=== PATIENT | female | born 1995 | race Caucasian/White ===

== ENCOUNTER 2016-09-22 07:37 | Emergency (ER) | payer BC ==
[~2016-09-22] VITALS: Ht 157.5 cm; Wt 50.0 kg
[2016-09-22 07:39] VITALS: BP 118/99; PULSE 82; RESP 16; TEMP 98.9; O2SAT 99
[2016-09-22] MEDS ORDERED: SODIUM CHLOR 0.9% 1000 ML INJ 1,000 ML IV SCH (08:34)
--- NOTE | 2016-09-22 08:40 | PD ---
HPI Chief Complaint: GI Complaint Time Seen by Provider: 08:23 Travel History International Travel<30 days: No Contact w/Intl Traveler<30days: No Traveled to known affect area: No History of Present Illness HPI This is a 21-year-old female who has a history of anxiety disorder, reported renal transplant that was a perfect match and not on immunosuppressants, presents today with complaints of epigastric discomfort times one month. She reports nausea and decreased appetite and epigastric discomfort times one month. She denies any fevers, chills per she denies any diarrhea, vomiting. She does state that she drinks a lot of energy drinks. She also reports that she's tried to stop drinking them when the symptoms started. The patient has no history of peptic ulcer disease. She does admit to smoking marijuana but denies tobacco abuse. She denies any alcohol abuse. She is sexually active and denies any pelvic pain or vaginal discharge. She does state that she has an occasional kidney pain but could not quantitate that at the time of my evaluation. PFSH Past Medical History ?: Unknown LMP: 09/20 Social History Alcohol Use: No Tobacco Use: No Substance Use: Yes (" Smoke weed sometimes") Allergies-Medications (Allergen,Severity, Reaction): Coded Allergies: Penicillin (Verified Allergy, Unknown, 09/22/16) Sulfa (Verified Allergy, Unknown, 09/22/16) Reported Meds & Prescriptions Reported Meds & Active Scripts Active Zofran (Ondansetron HCl) 4 Mg Tab 4 Mg PO Q8HR PRN Zantac (Ranitidine HCl) 150 Mg Tab 150 Mg PO BID Review of Systems Except as stated in HPI: all other systems reviewed are Neg General / Constitutional: No: Fever HENT: No: Headaches, Vertigo, Lightheadedness Cardiovascular: No: Chest Pain or Discomfort, Palpitations Respiratory: No: Cough, Shortness of Breath Gastrointestinal: Positive: Nausea, Abdominal Pain (epigastric), Loss of Appetite, No: Vomiting, Diarrhea, Changes in Bowel Habits Genitourinary: Positive: Flank Pain (occasional intermittent), No: Frequency, Dysuria, Pelvic Pain Musculoskeletal: No: Myalgias, Weakness Neurologic: No: Weakness, Dizziness Psychiatric: No: Disorder of Thought Physical Exam Narrative GENERAL: Well-nourished, well-developed patient. SKIN: Focused skin assessment warm/dry. HEAD: Normocephalic/atraumatic. EYES: No scleral icterus. No injection or drainage. NECK: Supple, trachea midline. CARDIOVASCULAR: Regular rate and rhythm without murmurs, gallops, or rubs. RESPIRATORY: Breath sounds equal bilaterally. No accessory muscle use. GASTROINTESTINAL: Abdomen soft, nondistended. She has subjective discomfort in her epigastrium. There is no rebound or guarding elicited. MUSCULOSKELETAL: No cyanosis, or edema. NEUROLOGICAL: Awake and alert. Cranial nerves II through XII intact. Motor grossly within normal limits. Five out of 5 muscle strength in all muscle groups. Normal speech. Data Data Last Documented VS Vital Signs Date Time Temp Pulse Resp B/P Pulse Ox O2 Delivery O2 Flow Rate FiO2 09/22/16 10:40 73 16 112/70 97 Room Air 09/22/16 07:39 98.9 Orders Complete Blood Count With Diff (09/22/16 08:34) Comprehensive Metabolic Panel (09/22/16 08:34) Lactic Acid (09/22/16 08:34) Urinalysis - C+S If Indicated (09/22/16 08:34) Iv Access Insert/Monitor (09/22/16 08:34) Ecg Monitoring (09/22/16 08:34) Oximetry (09/22/16 08:34) Sodium Chlor 0.9% 1000 Ml Inj (Ns 1000 M (09/22/16 08:34) Sodium Chloride 0.9% Flush (Ns Flush) (09/22/16 08:45) Al-Mag Hy-Si 40-40-4 Mg/Ml Liq (Mag-Al P (09/22/16 08:45) Lidocaine 2% Viscous (Xylocaine 2% Visco (09/22/16 08:45) Ed Urine Pregnancytest Poc (09/22/16 08:34) Mandatory Outpatient Referral (09/22/16 11:01) Labs Laboratory Tests Test 09/22/16 09/22/16 08:30 08:40 Urine Color YELLOW Urine Turbidity HAZY Urine pH 6.0 Urine Specific [place] 1.014 Urine Protein TRACE mg/dL Urine Glucose (UA) NEG mg/dL Urine Ketones NEG mg/dL Urine Occult Blood NEG Urine Nitrite NEG Urine Bilirubin NEG Urine Urobilinogen LESS THAN 2.0 MG/DL Urine Leukocyte Esterase TRACE Urine RBC 1 /hpf Urine WBC 3 /hpf Urine Squamous Epithelial 2 /hpf Cells Urine Bacteria OCC /hpf Urine Mucus FEW /lpf Microscopic Urinalysis Comment CULT NOT INDICATED White Blood Count 5.6 TH/MM3 Red Blood Count 4.47 MIL/MM3 Hemoglobin 12.8 GM/DL Hematocrit 38.1 % Mean Corpuscular Volume 85.4 FL Mean Corpuscular Hemoglobin 28.7 PG Mean Corpuscular Hemoglobin 33.6 % Concent Red Cell Distribution Width 13.7 % Platelet Count 271 TH/MM3 Mean Platelet Volume 7.9 FL Neutrophils (%) (Auto) 59.4 % Lymphocytes (%) (Auto) 33.5 % Monocytes (%) (Auto) 5.6 % Eosinophils (%) (Auto) 1.0 % Basophils (%) (Auto) 0.5 % Neutrophils # (Auto) 3.4 TH/MM3 Lymphocytes # (Auto) 1.9 TH/MM3 Monocytes # (Auto) 0.3 TH/MM3 Eosinophils # (Auto) 0.1 TH/MM3 Basophils # (Auto) 0.0 TH/MM3 CBC Comment DIFF FINAL Differential Comment Sodium Level 140 MEQ/L Potassium Level 3.7 MEQ/L Chloride Level 106 MEQ/L Carbon Dioxide Level 26.0 MEQ/L Anion Gap 8 MEQ/L Blood Urea Nitrogen 7 MG/DL Creatinine 0.78 MG/DL Estimat Glomerular Filtration 92 ML/MIN Rate Random Glucose 93 MG/DL Lactic Acid Level 0.6 mmol/L Calcium Level 8.7 MG/DL Total Bilirubin 0.7 MG/DL Aspartate Amino Transf 13 U/L (AST/SGOT) Alanine Aminotransferase 23 U/L (ALT/SGPT) Alkaline Phosphatase 53 U/L Total Protein 7.3 GM/DL Albumin 4.0 GM/DL [facility] Medical Decision Making Medical Screen Exam Complete: Yes Emergency Medical Condition: Yes Differential Diagnosis Gastritis versus peptic ulcer disease versus pancreatitis versus cholecystitis Narrative Course 21-year-old female presents with one-month history of epigastric discomfort. Patient states she feels nauseous and dizzy at times. The patient's lab tests are all within normal limits. She's been given a GI cocktail which helped her symptoms. She has a non-surgical belly on exam. I will start her on Zantac 150 mg twice daily. I put in a mandatory consult for a GI follow up. She is instructed to have a bland diet. She is also instructed to avoid any fatty foods. She'll also be given a prescription for nausea medicine and told to take as needed. Diagnosis Primary Impression: Epigastric abdominal pain Additional Instructions: [place] diet. You will receive a call in the next few days from a nurse for a follow up appointment with a reeling operator. Med/Other Pt SpecificInfo: Prescription(s) given Scripts Ondansetron (Zofran)4 Mg Tab4 Mg PO Q8HR PRN (NAUSEA OR VOMITING) #20 TAB Ref 0 Prov:Kurtis Hollingsworth MD 09/22/16 Ranitidine (Zantac)150 Mg [id number] Mg PO BID #60 TAB Ref 0 Prov:Kurtis Hollingsworth MD 09/22/16 Disposition: 01 DISCHARGE HOME Condition: Stable Kurtis Hollingsworth MD September 22, 2016 08:40 Kurtis Hollingsworth MD September 22, 2016 08:40
[2016-09-22] MEDS ORDERED: SODIUM CHLORIDE 0.9% FLUSH 10 ML FLUSH IV FLUSH PRN (08:45)
[2016-09-22] MEDS ORDERED: ALUMINUM/MAGNESIUM/SIMETH 30 ML CUP PO ONE (08:45)
[2016-09-22] MEDS ORDERED: LIDOCAINE VISCOUS 2% SOLN 15 ML UDC PO ONE (08:45)
[2016-09-22 08:53] VITALS: BP 155/67; PULSE 64; RESP 18; O2SAT 100
[2016-09-22 08:57] LABS: AUTOMATED NEUTROPHIL # 3.4 TH/MM3 (1.8-7.7); BASOPHIL % 0.5 % (0.0-2.0); EOSINOPHIL # 0.1 TH/MM3 (0-0.4); HEMATOCRIT 38.1 % (35.0-46.0); HEMO FLAGS DIFF FINAL; LYMPH % 33.5 % (9.0-44.0); LYMPHOCYTE # 1.9 TH/MM3 (1.0-4.8); MEAN CELL VOLUME 85.4 FL (80.0-100.0); MEAN CORPUSCULAR HEMOGLOBIN 28.7 PG (27.0-34.0); MEAN CORPUSCULAR HGB CONC 33.6 % (32.0-36.0); MONO % 5.6 % (0.0-8.0); NEUT % 59.4 % (16.0-70.0); PLATELET COUNT 271 TH/MM3 (150-450); RED BLOOD COUNT 4.47 MIL/MM3 (4.00-5.30); RED CELL DISTRIBUTION WIDTH 13.7 % (11.6-17.2); WHITE BLOOD COUNT 5.6 TH/MM3 (4.0-11.0)
[2016-09-22 09:09] LABS: ANION GAP 8 MEQ/L (5-15); AST (GOT) 13 U/L (15-37); BLOOD UREA NITROGEN 7 MG/DL (7-18); CHLORIDE 106 MEQ/L (98-107); GLOMERULAR FILTRATION RATE 92 ML/MIN (>89); POTASSIUM 3.7 MEQ/L (3.5-5.1); SODIUM (NA) 140 MEQ/L (136-145)
[2016-09-22 09:11] LABS: BACTERIA, URINE OCC /hpf; BLOOD, URINE NEG (NEG); COMMENT (UR) CULT NOT INDICATED; CULTURE IF INDICATED CULT NOT INDICATED; GLUCOSE,URINE NEG (NEG); KETONE, URINE NEG (NEG); MUCUS URINE FEW /lpf (OCC); NITRITE,URINE NEG (NEG); SQUAMOUS EPITHELIAL CELL URINE 2 /hpf (0-5); URINE COLOR YELLOW (YELLW/STRAW)
[2016-09-22 09:13] LABS: ALKALINE PHOSPHATASE 53 U/L (45-117); ALT (GPT) 23 U/L (10-53); TOTAL BILIRUBIN ADULT 0.7 MG/DL (0.2-1.0)
[2016-09-22 10:40] VITALS: BP 112/70; PULSE 73; RESP 16; O2SAT 97
[2016-09-22] MEDS ORDERED: ZANT150T2 PO (11:01)
[2016-09-22] MEDS ORDERED: ZOFR4TAB PO (11:07)
[2016-09-22 11:25] VITALS: BP 115/63
== END 2016-09-22 11:27 | disposition home or self-care (01) ==
LOC: NEPC 07:37
DX: R10.13 Epigastric pain (principal); R11.0 Nausea; Z94.0 Kidney transplant status
CPT/HCPCS: 80053; 81001; 83605; 84703; 85025; 99284; J7030